=== PATIENT | female | born 1960 | race Caucasian/White ===

== ENCOUNTER 2016-02-28 15:57 | Emergency (ER) | payer SELFPAY ==
[~2016-02-28] VITALS: Ht 160 cm; Wt 112.3 kg
[~2016-02-28 15:57] MED LIST: GI MED; HCTZ; LEVOXYL0.1 MG PO; QUESTRAN4 GM/9 GM PO; SYNTHROID0.1 MG/TAB PO; TENORMIN100 MG PO; [UNRECOGNIZED DRUG - OTHER]
[2016-02-28 16:00] VITALS: BP 121/87
[2016-02-28] MEDS ORDERED: TENORMIN 5050 MG/TAB PO (16:24)
[2016-02-28] MEDS ORDERED: PROZAC40 MG PO (16:24)
[2016-02-28] MEDS ORDERED: HCTZ 25MG TAB25 MG PO (16:24)
[2016-02-28] MEDS ORDERED: MEVACOR 20M20 MG/TAB PO (16:25)
[2016-02-28] MEDS ORDERED: SYNTHROID0.125 MG/T PO (16:25)
[2016-02-28] MEDS ORDERED: GLUCOPHAGE1000 MG PO (16:25)
[2016-02-28] MEDS ORDERED: CEPHALEXIN500 M1 PO (16:26)
[2016-02-28] MEDS ORDERED: FLAGYL500 MG PO (16:26)
[2016-02-28] MEDS ORDERED: NORCO 325 MG-7.1 TAB PO (16:51)
[2016-02-28 17:08] VITALS: PULSE 68
== END 2016-02-28 17:11 | disposition home or self-care (01) ==
LOC: COL.ER 15:57
DX: L05.01 Pilonidal cyst with abscess (principal); E11.9 Type 2 diabetes mellitus without complications; Z79.84 Long term (current) use of oral hypoglycemic drugs

== ENCOUNTER 2016-04-05 07:13 | Day surgery (SDC) | payer SELFPAY ==
[~2016-04-05] VITALS: Ht 160 cm; Wt 114.2 kg
[~2016-04-05 07:13] MED LIST changes: +CEPHALEXIN500 M1 PO; +FLAGYL500 MG PO; +GLUCOPHAGE1000 MG PO; +HCTZ 25MG TAB25 MG PO; +MEVACOR 20M20 MG/TAB PO; +NORCO 325 MG-7.1 TAB PO; +PROZAC40 MG PO; +SYNTHROID0.125 MG/T PO; +TENORMIN 5050 MG/TAB PO
[2016-04-05 07:52] VITALS: BP 109/85; PULSE 64; TEMP 97.3
[2016-04-05 09:27] VITALS: BP 130/96; PULSE 62; TEMP 97.2
[2016-04-05 09:30] VITALS: BP 139/82; PULSE 62
[2016-04-05 09:45] VITALS: BP 139/75; PULSE 62
[2016-04-05 10:11] VITALS: BP 147/87; PULSE 62
[2016-04-05 10:32] VITALS: BP 149/90; PULSE 60
== END 2016-04-05 10:45 | disposition home or self-care (01) ==
LOC: SDCO 07:13
DX: Z12.11 Encounter for screening for malignant neoplasm of colon (principal); Z86.010 Personal history of colon polyps; E11.9 Type 2 diabetes mellitus without complications; I10 Essential (primary) hypertension; E78.00 Pure hypercholesterolemia, unspecified; E07.9 Disorder of thyroid, unspecified
CPT/HCPCS: OP; J2250; J3010; J7030

== ENCOUNTER 2018-04-25 13:06 | Emergency (ER) | payer SELFPAY ==
[~2018-04-25] VITALS: Ht 160 cm; Wt 106.8 kg
[2018-04-25 13:07] VITALS: TEMP 96.6
[2018-04-25 13:46] LABS: BASO % 0.5 % (0.0-2.0); EOS # 0.2 (0.0-0.7); EOS % 2.7 % (0-4.0); GRAN # 2.6 (1.4-6.5); GRAN % 44.2 % (42.2-75.2); HEMATOCRIT 42.6 % (37.0-47.0); LYMPH # 2.6 (1.2-3.4); LYMPH % 43.3 % (20.0-51.0); MEAN CELL VOLUME 89 fl (80.0-100.0); MEAN CORPUSCULAR HEMOGLOBIN 29 pg (27.0-31.0); MEAN CORPUSCULAR HGB CONC 33 g/dl (33.0-37.0); MEAN PLATELET VOLUME 11.7 fl (7.4-10.4); MONO # 0.5 (0.1-0.6); MONO % 8.8 % (1.7-9.3); PLATELET COUNT 222 K/mm3 (130-400); REDCELL DISTRIBUTION WIDTH-CV 13.1 % (11.5-14.5)
[2018-04-25 13:53] LABS: PROTHROMBIN TIME 11.9 SECONDS (9.7-12.8)
[2018-04-25 13:55] LABS: ALANINE AMINOTRANSFERASE 39 U/L (9-52); ALBUMIN 4.2 gm/dL (3.5-5.0); ALKALINE PHOSPHATASE 129 U/L (50-136); ANION GAP 10 mmol/L (7-16); AST,SGOT 60 U/L (15-37); BILIRUBIN,TOTAL 0.7 mg/dL (0.0-1.0); BLOOD UREA NITROGEN 10 mg/dL (7-17); CALCIUM 9.4 mg/dL (8.4-10.2); CARBON DIOXIDE 28 mmol/L (22-30); CHLORIDE 100 mmol/L (98-107); CREATININE, serum 0.47 mg/dL (0.52-1.25); GLUCOSE 267 mg/dL (74-106); POTASSIUM 3.9 mmol/L (3.4-5.0); SODIUM 138 mmol/L (137-145); TOTAL PROTEIN 7.7 gm/dL (6.4-8.2)
[2018-04-25 14:08] LABS: TROPONIN-I < 0.012 ng/mL (0.000-0.035)
[2018-04-25] MEDS ORDERED: GLUCOPHAGE500 MG/TAB PO (14:27)
[2018-04-25] MEDS ORDERED: HCTZ 25MG TAB25 MG PO (14:27)
[2018-04-25 14:53] LABS: MUCOUS Present /lpf; PH 6 (5-8); SQUAMOUS EPITHELIAL 0-2 /hpf; URINE APPEARANCE Clear; URINE BACTERIA Rare /hpf; URINE BILIRUBIN Negative (NEGATIVE); URINE BLOOD Negative (NEGATIVE); URINE COLOR Yellow; URINE GLUCOSE 3+ (NEGATIVE); URINE KETONE Trace (NEGATIVE); URINE LEUKOCYTE ESTERASE Negative (NEGATIVE); URINE NITRATE Negative (NEGATIVE); URINE PROTEIN(semi-quant) Negative (NEGATIVE); URINE RBC None Seen /hpf; URINE UROBILINOGEN >=4.0 mg/dL (NEGATIVE)
[2018-04-25 15:05] LABS: COLLECTION METHOD CLEAN CATCH
[2018-04-25 17:47] VITALS: BP 189/110; PULSE 86
== END 2018-04-25 19:15 | disposition short-term general hospital (02) ==
LOC: COL.ER 13:06
PROVIDERS: Nurse Practitioner Primary Care
DX: G45.9 Transient cerebral ischemic attack, unspecified (principal); E11.9 Type 2 diabetes mellitus without complications; I10 Essential (primary) hypertension; Z79.84 Long term (current) use of oral hypoglycemic drugs

== ENCOUNTER → 2018-07-06 | Outpatient (CLI) | payer SELFPAY ==
[~2018-07-06] MED LIST changes: +GLUCOPHAGE500 MG/TAB PO
[2018-07-06 12:20] LABS: CALCIUM 9.6 mg/dL (8.4-10.2); CREATININE, serum 0.55 (0.52-1.25); POTASSIUM 4.1 mmol/L (3.4-5.0)
[2018-07-06 12:51] LABS: THYROID STIMULATING HORMONE 3.93 uIU/mL (0.465-4.680)
== END ==
LOC: COL.LAB 11:34
PROVIDERS: Internal Medicine
DX: Z01.89 Encounter for other specified special examinations (principal)

== ENCOUNTER → 2018-12-03 | Outpatient (CLI) | payer MEDICAID | LOC: MC.RAD 12:31 | DX: N63.10 Unspecified lump in the right breast, unspecified quadrant (principal) | CPT/HCPCS: G0279 ==

== ENCOUNTER → 2018-12-08 | Outpatient (CLI) | payer MEDICAID | LOC: MC.RAD 08:00 | DX: C50.911 Malignant neoplasm of unspecified site of right female breast (principal); Z98.82 Breast implant status ==

== ENCOUNTER → 2019-02-19 | Outpatient (CLI) | payer MEDICAID ==
[2019-02-19 10:56] LABS: ALBUMIN 3.6 gm/dL (3.5-5.0); CALCIUM 9.1 mg/dL (8.4-10.2); CREATININE, serum 0.64 (0.52-1.25); POTASSIUM 4.4 mmol/L (3.4-5.0); TOTAL PROTEIN 6.3 gm/dL (6.4-8.2)
== END ==
LOC: COL.LAB 10:04
DX: C50.411 Malignant neoplasm of upper-outer quadrant of right female breast (principal); E87.6 Hypokalemia; Z17.0 Estrogen receptor positive status [ER+]; Z79.899 Other long term (current) drug therapy

== ENCOUNTER 2019-04-30 18:55 | Emergency (ER) | payer MEDICAID ==
[~2019-04-30] VITALS: Ht 162.6 cm; Wt 101.8 kg
[2019-04-30 19:20] VITALS: TEMP 97.2
[2019-04-30 21:26] LABS: COLLECTION METHOD CLEAN CATCH
[2019-04-30 21:49] LABS: MUCOUS Present /lpf; PH 5 (5-8); SQUAMOUS EPITHELIAL 0-2 /hpf; URINE APPEARANCE Hazy; URINE BACTERIA Rare /hpf; URINE BILIRUBIN Negative (NEGATIVE); URINE BLOOD Negative (NEGATIVE); URINE CALCIUM OXALATE CRYSTAL Present /hpf; URINE COLOR Yellow; URINE GLUCOSE Negative (NEGATIVE); URINE KETONE Negative (NEGATIVE); URINE LEUKOCYTE ESTERASE Negative (NEGATIVE); URINE NITRATE Negative (NEGATIVE); URINE PROTEIN(semi-quant) 1+ (NEGATIVE); URINE UROBILINOGEN >=4.0 mg/dL (NEGATIVE)
[2019-04-30] MEDS ORDERED: OMNICEF 300MG300 MG PO (22:00)
[2019-04-30 22:05] VITALS: BP 124/78; PULSE 85
== END 2019-04-30 22:44 | disposition home or self-care (01) ==
LOC: COL.ER 18:55
PROVIDERS: Family Medicine
DX: L05.01 Pilonidal cyst with abscess (principal); N39.0 Urinary tract infection, site not specified; Z85.3 Personal history of malignant neoplasm of breast; Z79.84 Long term (current) use of oral hypoglycemic drugs

== ENCOUNTER 2019-12-09 09:45 | Outpatient (RCR) | payer MEDICAID ==
[~2019-12-09 09:45] MED LIST changes: +OMNICEF 300MG300 MG PO
== END 2020-02-01 | disposition home or self-care (01) ==
LOC: WSPT
DX: I89.0 Lymphedema, not elsewhere classified (principal); M77.9 Enthesopathy, unspecified; Z91.89 Other specified personal risk factors, not elsewhere classified; Z90.10 Acquired absence of unspecified breast and nipple

== ENCOUNTER 2020-02-05 10:55 | Emergency (ER) | payer MEDICAID ==
[~2020-02-05] VITALS: Ht 162.6 cm; Wt 90.9 kg
[2020-02-05 10:57] VITALS: TEMP 98.2
[2020-02-05 13:10] VITALS: BP 141/75; PULSE 83
== END 2020-02-05 13:10 | disposition home or self-care (01) ==
LOC: COL.ER 10:55
DX: S52.125A Nondisplaced fracture of head of left radius, initial encounter for closed fracture (principal); Z88.1 Allergy status to other antibiotic agents; W19.XXXA Unspecified fall, initial encounter; Z79.84 Long term (current) use of oral hypoglycemic drugs; Y92.009 Unspecified place in unspecified non-institutional (private) residence as the place of occurrence of the external cause